=== PATIENT | male | born 1975 | race Caucasian/White ===

== ENCOUNTER → 2016-05-02 | Outpatient (CLI) | payer OTHER ==
[~2016-05-02] VITALS: Ht 175.3 cm; Wt 100.6 kg
[~2016-05-02] MED LIST: ASCO1CAP3 PO; ASPI81TA28 PO; HYDR2.5C37 TOP; HYDR25SU20 PR; IBUP-103 PO; IBUP-1428 PO; KRIL1CAP3 PO; LIDO4CRE10 TOP; MULT-220 PO; OMEG10007 PO; PSYL55.43 PO; PSYL58.636 PO
[2016-05-02 16:11] VITALS: BP 125/87; Ht 175.3 cm; Wt 100.6 kg
== END | disposition home or self-care (01) ==
LOC: C.NEUR 15:16
PROVIDERS: ATTEND Allergy & Immunology Allergy
DX: G47.30 Sleep apnea, unspecified (principal); R06.83 Snoring; R53.83 Other fatigue

== ENCOUNTER → 2016-07-06 | Outpatient (CLI) | payer OTHER ==
[2016-07-06 09:56] LABS: GLUCOSE,FASTING 99 mg/dl (70-99)
[2016-07-06 10:20] LABS: ALKALINE PHOSPHATASE 58 U/L (45-117); ALT/SGPT 50 U/L (12-78); AST/SGOT 19 U/L (15-37); CHOLESTEROL 225 mg/dl (0-200); CHOLESTEROL/HDL RATIO 5.8; HDL CHOLESTEROL 39 mg/dl; LDL CHOLESTEROL CALCULATED 149 mg/dl; THYROID STIMULATING HORMONE 0.722 uIu/ml (0.300-4.500); TRIGLYCERIDES 185 mg/dl (0-150); VERY LOW DENSITY LIPOPROT CALC 37 mg/dl
== END | disposition home or self-care (01) ==
LOC: C.LAB1850 08:00
PROVIDERS: ATTEND Internal Medicine
DX: E78.1 Pure hyperglyceridemia (principal)

== ENCOUNTER 2016-09-19 20:42 | Emergency (ER) | payer OTHER ==
[~2016-09-19] VITALS: Ht 175.3 cm; Wt 95.9 kg
[~2016-09-19 20:42] MED LIST changes: -ASPI81TA28 PO; -HYDR2.5C37 TOP; -HYDR25SU20 PR; -IBUP-103 PO; -LIDO4CRE10 TOP; -OMEG10007 PO; -PSYL58.636 PO
[2016-09-19 20:50] VITALS: TEMP 36.7; Ht 175.3 cm; Wt 95.9 kg
[2016-09-19] MEDS ORDERED: ASPI81TA28 PO (21:40)
[2016-09-19] MEDS ORDERED: IBUP-103 PO (21:42)
[2016-09-19] MEDS ORDERED: OMEG10007 PO (21:42)
[2016-09-19] MEDS ORDERED: PSYL58.636 PO (21:46)
--- NOTE | 2016-09-19 21:52 | EMERGENCY ROOM VISIT NOTE ---
History Report prepared by Evelin: Haylee Curran Under the Supervision of: Mel LrO. First contact with patient: 21:05 Chief Complaint: RECTAL BLEEDING Stated Complaint: RECTAL PAIN BLEEDING Nursing Triage Summary: history of thrombosed hemroids, started 2.5 days ago. History of Present Illness The patient is a 40 year old male who presents to the Emergency Room with complaints of severe rectal pain starting about 2 days ago. He has worsening pain with movement. He has 2 engorged rectal hemorrhoids. He states the pain is coming from the hemorrhoids. He has a history of hemorrhoid problems but it is worse than normal this time. He reports some bleeding from the hemorrhoids but denies any blood in stool. He has been applying ytgh-rqg-pkevqdj hemorrhoid cream and taking pain medication without relief. He normally takes stool softeners and fiber but he ran out of fiber about 4 days ago. He has an appointment for a colonoscopy in 2 weeks. Pt denies headache, change in vision, fevers, chest pain, shortness of breath, nausea, vomiting, diarrhea, and pain with urination. Source of History: patient Onset: about 2 days ago Position: other (rectum) Symptom Intensity: severe Timing: worsening Modifying Factors (Worsening): movement, other (sitting up) Modifying Factors (Relieving): other (vyhe-kan-luqfegd hemorrhoid cream and taking pain medication without relief) Associated Symptoms: No SOB, No chest pain, No diarrhea, No fevers, No headache, No nausea, No vomiting Review of Systems See HPI for pertinent positives & negatives. A total of 10 systems reviewed and were otherwise negative. Past Medical & Surgical Medical Problems: (1) Arthroscopy of knee joint (2) Sciatica Family History Cancer Social History Smoking Status: Never Smoker Alcohol Use: occasionally Marital Status: Housing Status: lives with significant other Occupation Status: employed Current/Historical Medications Scheduled Ascorbic Acid (Vitamin C), 500 MG PO DAILY Aspirin (Aspirin Ec), 81 MG PO DAILY Fish Oil (Pacolet-3), 1 CAP PO DAILY Hydrocortisone 2.5% (Rectal) (Anusol-Hc 2.5%), 1 APPLN TOP BID Hydrocortisone Acetate (Rectal (Anusol-Hc), 25 MG TX BID Lidocaine (Anorectal) (Lidocaine), 1 APPLN TOP BID Multiple Vitamins W/ Minerals (Multi For Him), 1 TAB PO DAILY Psyllium (Metamucil Fiber), 1 DOSE PO 1-2 X DAILY Scheduled PRN Ibuprofen Tab (Advil), 400-600 MG PO Q6H PRN for Pain Allergies Coded Allergies: No Known Allergies (Unverified , 09/14/15) Physical Exam Vital Signs Date Time Temp Pulse Resp B/P Pulse Ox O2 Delivery O2 Flow Rate FiO2 09/19/16 22:50 66 18 132/69 96 09/19/16 22:40 65 18 137/80 96 Room Air 09/19/16 20:50 36.7 74 16 141/96 96 Room Air Physical Exam GENERAL: Sitting up in bed, in moderate distress, non-toxic EYE EXAM: normal conjunctiva OROPHARYNX: no exudate, no erythema, lips, buccal mucosa, and tongue normal and mucous membranes are moist NECK: supple, no nuchal rigidity, no adenopathy, non-tender LUNGS: Clear to auscultation. Normal chest wall mechanics HEART: no murmurs, S1 normal and S2 normal ABDOMEN: abdomen soft, non-tender, normo-active bowel sounds, no masses, no rebound or guarding. RECTAL: 2 small non-engorged hemorrhoids on the right, one large egg-sized engorged hemorrhoid on the left without thrombosis. BACK: Back is symmetrical on inspection and there is no deformity, no midline tenderness, no CVA tenderness. SKIN: no rashes and no bruising UPPER EXTREMITIES: upper extremities are grossly normal. LOWER EXTREMITIES: No pitting edema. NEURO EXAM: Normal sensorium, cranial nerves II-XII grossly intact, normal speech, no gross weakness of arms, no gross weakness of legs. Medical Decision & Procedures Medications Administered Medications (Trade) Dose Ordered Sig/Delfino Route Start Time Stop Time Status Last Admin Dose Admin Morphine Sulfate (MoRPHine SULFATE INJ) 4 mg NOW STAT IV 09/19/16 21:55 09/19/16 21:56 DC 09/19/16 22:10 4 MG Ondansetron HCl (Zofran Inj) 4 mg NOW STAT IV 09/19/16 21:55 09/19/16 21:56 DC 09/19/16 22:10 4 MG Hydrocortisone (Proctozone Hc 2.5% Crm) 1 appln NOW ONCE EXT 09/19/16 22:30 09/19/16 22:31 DC 09/19/16 22:45 1 APPLN Oxycodone HCl (Roxicodone Immediate Rel 5MG Home Pack) 1 homepack UD ONCE PO 09/19/16 22:30 09/19/16 22:31 DC 09/19/16 22:45 1 HOMEPACK Lidocaine HCl (Xylocaine Jelly 2%) 30 ml STK-MED ONCE EXT 09/19/16 22:40 09/19/16 22:41 DC 09/19/16 22:45 30 ML ED Course ED COURSE: Vital signs were reviewed and showed normal. The patients medical record was reviewed The above diagnostic studies were performed and reviewed. ED treatments and interventions as stated above. 2104: The patient was evaluated in room C02B. A complete history and physical examination was performed. 2154: Zofran Inj 4 mg IV, Morphine Sulfate 4 mg IV 2156: I discussed the patient's case with Dr. Yoon, general surgeon with [facility]. 2226: Upon reevaluation, the patient is resting comfortably. I discussed my findings with the patient and he understands and agrees with the treatment plan. Based on the patients age, coexisting illnesses, exam and lab findings the decision to treat as an outpatient was made. The patient remained stable while under my care. The patient appeared well at the time of discharge. 2230: Oxycodone HCl 1 homepack PO, Hydrocortisone 1 appln EXT, Lidocaine HCl 2 ml EXT Medical Decision Differential diagnoses includes but is not limited to gastritis, peptic ulcer disease, GERD, gallbladder disease, pancreatitis, small bowel obstruction, acute coronary syndrome, pericarditis, ischemic bowel, irritable bowel disease, irritable bowel syndrome, appendicitis, diverticulitis, malignancy, hernia, urinary tract infection, torsion, perforation, trauma, infectious. Patient is a 40-year-old male who presents the ER for severe rectal pain which is been present the past 2 days. He doesn't history hemorrhoids and notes that he currently has another one. On exam he does have a large excised hemorrhoid on the left which is not thrombosed. Exam is otherwise benign. Discussed with general surgery and they agreed with topical Anusol, suppositories, sitz baths and lidocaine gel. IV was placed per protocol he was given a dose of morphine with improvement. He was discharged to follow-up with general surgery and given OxyIR. Discussed with Pt concerning signs and symptoms to watch out for. Pt was instructed to follow up with their PCP and discussed with the patient their option to return to the ED at anytime for persistent or worsening symptoms. The appropriate anticipatory guidance and out-patient management, including indications for return to the emergency department, were explained at length to the patient and understood. Consults Time Called: 2154 Consulting Physician: Dr. Yoon, general surgeon with [facility] Returned Call: [phone] I discussed the patient's case with Dr. Yoon, general surgeon with [facility]. Impression Primary Impression: Acute hemorrhoid Scribe Attestation The scribe's documentation has been prepared under my direction and personally reviewed by me in its entirety. I confirm that the note above accurately reflects all work, treatment, procedures, and medical decision making performed by me. Departure Information Dispostion Home / Self-Care Prescriptions Lidocaine (Anorectal) (Lidocaine) 5 % Cre 1 APPLN TOP BID for Pain, #1 TUBE Prov: Manjit Hook, DO 09/19/16 Hydrocortisone 2.5% (Rectal) (ANUSOL-HC 2.5%) 2.5 % Cre 1 APPLN TOP BID for 7 Days, #30 GM 1 Refill Prov: Manjit Hook, DO 09/19/16 Hydrocortisone Acetate (Rectal (ANUSOL-HC) 25 Mg Sup 25 MG TX BID for 4 Days, SUPP Prov: Manjit Hook, DO 09/19/16 Referrals RV. Spangler MD (PCP) Qasim Yoon M.D. Forms HOME CARE DOCUMENTATION FORM, IMPORTANT VISIT INFORMATION, WORK / SCHOOL INSTRUCTIONS Patient Instructions ED Hemorrhoids, My [facility] Additional Instructions Please follow up with your primary care doctor with in the next 24 hours. Any worsening of your symptoms, please return to the ED immediately. This includes inability to move her bowels, passing out, blood in her stool, abdominal pain, or any other concerning signs or symptoms from your standpoint. Please continue to take your nbsk-ruy-cwoyiww stool softeners. Please apply the Anusol cream 3 times a day. Please apply the lidocaine jelly twice a day as needed for pain. You were given medications during this visit that will inhibit your ability to drive, operate machinery and work. Please do NOT drive, operate machinery or work for the next 12hrs. You were also given a prescription for a narcotic/oxy IR. While taking this medication you should also not drive, operate machinery and or work. Please use sits baths as frequently as possible.
[2016-09-19] MEDS ORDERED: MoRPHine SULFATE 4 MG/ML 1 ML CARP\\VIAL IV STA (21:55)
[2016-09-19] MEDS ORDERED: ONDANSETRON INJ 2 MG/ML 2 ML VIAL IV STA (21:55)
[2016-09-19] MEDS ORDERED: LIDO4CRE10 TOP (22:24)
[2016-09-19] MEDS ORDERED: HYDR25SU20 PR (22:24)
[2016-09-19] MEDS ORDERED: HYDR2.5C37 TOP (22:24)
[2016-09-19] MEDS ORDERED: HYDROCORTISONE HC 2.5% CRM 30GM TUBE EXT ONE (22:30)
[2016-09-19] MEDS ORDERED: OXYCODONE IR HOME PACK PO ONE (22:30)
[2016-09-19] MEDS ORDERED: LIDOCAINE HCL 2% JELLY 30 ML TUBE EXT ONE (22:40)
[2016-09-19 22:50] VITALS: BP 132/69; PULSE 66; O2SAT 96
[2016-09-20] MEDS ORDERED: LIDOCAINE HCL 2% JELLY 30 ML TUBE EXT SCH (09:00)
== END 2016-09-19 22:51 | disposition home or self-care (01) ==
LOC: C.EDB 20:42 → C.EDC 22:51
DX: K64.9 Unspecified hemorrhoids (principal); Z79.82 Long term (current) use of aspirin; Z79.899 Other long term (current) drug therapy; Z96.659 Presence of unspecified artificial knee joint; Z80.9 Family history of malignant neoplasm, unspecified